=== PATIENT | male | born 1975 | race Hispanic/Latino ===

== ENCOUNTER 2016-12-09 09:44 | Emergency (ER) | payer MEDICAID ==
[2016-12-09 10:00] VITALS: BP 124/83
[2016-12-09] MEDS ORDERED: DECADRON IM ONE (11:20)
[2016-12-09] MEDS ORDERED: TORADOL IM ONE (11:20)
--- NOTE | 2016-12-09 11:21 | Emergency Department Report ---
ED Back Pain/Injury HPI - General Chief Complaint: Back Pain/Injury Stated Complaint: BACK PAIN Time Seen by Provider: 12/09/16 11:19 Source: patient Limitations: No Limitations - History of Present Illness Initial Comments: Patient here reports that he pulled his back muscle on the left side while bending down to pick object. He is reporting pain that feels stiff in his left back area. Had similar episode in the past. Denies any numbness or tingling to extremities. Denies any urinary burning frequency or urgency. Denies any abdominal or testicular pain. He says this just happened 2 days ago. MD Complaint: back pain, back injury Onset/Timin -: days(s) Similar Symptoms Previously: Yes Place: home Radiation: none Severity: severe Severity scale (0 -10): 8 Quality: aching, other (stiff) Consistency: intermittent Improves With: immobilization, sitting upright Worsens With: movement, walking Context: bending Associated Symptoms: denies: confusion, weakness, chest pain, numbness, difficulty walking, cough, difficulty urinating, diaphoresis, incontinence, fever/chills, constipation, headaches, abdominal pain, loss of appetite, malaise , nausea/vomiting, rash, seizure, shortness of breath, syncope Treatments Prior to Arrival: acetaminophen - Related Data Previous Rx's Medication Instructions Recorded Last Taken Type Cyclobenzaprine [Flexeril] 10 mg PO TID PRN #15 tablet 12/09/16 Unknown Rx Allergies Allergy/AdvReac Type Severity Reaction Status Date / Time No Known Allergies Allergy Unverified 12/09/16 09:57 ED Review of Systems ROS: Stated complaint: BACK PAIN Other details as noted in HPI Comment: All other systems reviewed and negative Constitutional: denies: chills, diaphoresis Respiratory: no symptoms reported Cardiovascular: denies: chest pain, palpitations, edema, syncope Gastrointestinal: denies: abdominal pain, nausea, vomiting, diarrhea Genitourinary: denies: urgency, dysuria, frequency, hematuria, discharge, testicular pain, testicular mass Musculoskeletal: back pain. denies: joint swelling, arthralgia Skin: denies: rash Neurological: denies: headache, weakness, numbness, paresthesias, confusion, abnormal gait, vertigo ED Past Medical Hx - Past Medical History Previous Medical History?: No - Surgical History Past Surgical History?: No - Family History Family history: no significant - Social History Smoking Status: Never Smoker Substance Use Type: Alcohol, Non Opiate Pain - Medications Home Medications: Home Medications Medication Instructions Recorded Confirmed Last Taken Type Cyclobenzaprine [Flexeril] 10 mg PO TID PRN #15 tablet 12/09/16 Unknown Rx ED Physical Exam - General Limitations: No Limitations General appearance: alert, in no apparent distress - Head Head exam: Present: atraumatic, normocephalic, normal inspection - Eye Eye exam: Present: normal appearance, PERRL, EOMI Pupils: Present: normal accommodation - Neck Neck exam: Present: normal inspection, full ROM. Absent: tenderness, meningismus, lymphadenopathy - Respiratory Respiratory exam: Present: normal lung sounds bilaterally. Absent: respiratory distress, chest wall tenderness - Cardiovascular Cardiovascular Exam: Present: regular rate, normal rhythm, normal heart sounds - GI/Abdominal GI/Abdominal exam: Present: soft, normal bowel sounds. Absent: distended, tenderness, guarding, rebound, rigid - Extremities Exam Extremities exam: Present: normal inspection, full ROM, normal capillary refill. Absent: tenderness, pedal edema, joint swelling, calf tenderness - Back Exam Back exam: Present: normal inspection, full ROM, muscle spasm (left lumbar area) . Absent: tenderness, CVA tenderness (R), paraspinal tenderness, vertebral tenderness, rash noted - Neurological Exam Neurological exam: Present: alert, oriented X3, normal gait, reflexes normal. Absent: motor sensory deficit - Expanded Neurological Exam Expanded Neurological exam: Absent: innattentive, memory loss-remote event, memory loss- recent event, ataxia, receptive aphasia, expressive aphasia, total aphasia, tremor, protecting the airway Patient oriented to: Present: person, place, time Speech: Present: fluid speech Cranial nerves: EOM's Intact: Normal, Gag Reflex: Normal, Nystagmus: Normal Cerebellar function: Romberg: Normal Upper motor neuron: Pronator Drift: Normal Sensory exam: Upper Extremity Light Touch: Normal, Upper Extremity Temperature: Normal, Lower Extremity Light Touch: Normal, Lower Extremity Temperature: Normal Motor strength exam: RUE: 5, LUE: 5, RLE: 5, LLE: 5 DTR: bicep (R): 2+, bicep (L): 2+, tricep (R): 2+, tricep (L): 2+, knee (R): 2+ , knee (L): 2+, ankle (R): 2+, ankle (L): 2+ Best Eye Response (Aaron): (4) open spontaneously Best Motor Response (Wendel): (6) obeys commands Best Verbal Response (Aaron): (5) oriented Aaron Total: 15 - Psychiatric Psychiatric exam: Present: normal affect, normal mood - Skin Skin exam: Present: warm, dry, intact, normal color. Absent: rash ED Course Vital Signs 12/09/16 12/09/16 09:57 11:27 Temperature 98 F Pulse Rate 62 Respiratory 18 16 Rate Blood Pressure 124/83 O2 Sat by Pulse 100 Oximetry - Reevaluation(s) Reevaluation #1: 12/09/16 12:04 Patient given Toradol 60 mg IM and Decadron 10 mg IM and emergency room which relieved this pain. ED Medical Decision Making - Medical Decision Making ED Course: I Discussed with patient that he will need to follow-up with orthopedic doctor if his back pain returns. I discussed with him he is muscle spasm and HIM medication that will treat this. She was understanding of discharge instructions and discharged home with prescription for Flexeril to follow-up with orthopedic doctor. Critical care attestation.: If time is entered above; I have spent that time in minutes in the direct care of this critically ill patient, excluding procedure time. ED Disposition Clinical Impression: Back muscle spasm Lower back pain Qualifiers: Chronicity: unspecified Back pain laterality: left Sciatica presence: without sciatica Qualified Code(s): M54.5 - Low back pain Back strain Qualifiers: Encounter type: initial encounter Qualified Code(s): S39.012A - Strain of muscle, fascia and tendon of lower back, initial encounter Disposition: DISCHARGED TO HOME OR SELFCARE Is pt being admited?: No Does the pt Need Aspirin: No Condition: Stable Instructions: Muscle Spasm (ED), Low Back Strain (ED), Back Pain (ED) Additional Instructions: Orthopedic doctor as discussed for back pain Do not take Flexeril while driving or operating heavy machinery as medication will cause her to be drowsy Prescriptions: Cyclobenzaprine [Flexeril] 10 mg PO TID PRN #15 tablet PRN Reason: Muscle Spasm Referrals: PRIMARY CARE, [Primary Care Provider] - 3-5 Days JAROD VILLANUEVA MD [Staff Physician] - 3-5 Days Forms: Work/School Release Form(ED)
== END 2016-12-09 12:17 | disposition home or self-care (01) ==
LOC: ED 09:44
DX: S39.012A Strain of muscle, fascia and tendon of lower back, initial encounter (principal); X58.XXXA Exposure to other specified factors, initial encounter; Y93.89 Activity, other specified; Y99.8 Other external cause status; Y92.098 Other place in other non-institutional residence as the place of occurrence of the external cause
CPT/HCPCS: 96372; 99282; J1100; J1885